=== PATIENT | female | born 1960 | race Caucasian/White ===

== ENCOUNTER 2024-01-07 03:10 | Inpatient (IN) | payer BC ==
[~2024-01-07] VITALS: Ht 167.6 cm; Wt 93.2 kg
[2024-01-07 04:47] LABS: BASOPHILS # (AUTO) 0.1 X10'3 (0-0.2); BASOPHILS % (AUTO) 1.2 % (0-1); EOSINOPHILS % (AUTO) 0.1 % (0-6); HEMATOCRIT 46.6 % (35.0-45.0); HEMOGLOBIN 15.5 g/dl (12.0-16.0); LYMPHOCYTES # (AUTO) 0.4 X10'3 (1.1-4.8); LYMPHOCYTES % (AUTO) 3.4 % (21-51); MEAN CORPUSCULAR HEMOGLOBIN 30.2 PG (27.0-31.0); MEAN CORPUSCULAR HGB CONC 33.2 g/dL (33.0-36.5); MEAN CORPUSCULAR VOLUME 91.1 FL (78-98); MEAN PLATELET VOLUME 10.1 FL (7.4-10.4); MONOCYTES # (AUTO) 0.5 X10'3 (0-0.9); MONOCYTES % (AUTO) 4.3 % (2-12); NEUTROPHILS # (AUTO) 11.3 X10'3 (1.8-7.7); PLATELET COUNT 257 X10'3 (140-440); RED BLOOD COUNT 5.12 X10'6 (4.20-5.60); RED CELL DISTRIBUTION WIDTH 13.6 % (11.5-14.5); WHITE BLOOD COUNT 12.5 X10'3 (4.5-11.0)
[2024-01-07 05:15] LABS: ALANINE AMINOTRANSFERASE 21 U/L (12-78); ALBUMIN 4.1 G/DL (3.4-5.0); ALBUMIN/GLOBULIN RATIO 1.2 (1.1-1.5); ALKALINE PHOSPHATASE 101 IU/L (46-116); ANION GAP 22 (8-16); ASPARTATE AMINO TRANSFERASE 11 U/L (10-37); BILIRUBIN,TOTAL 0.4 MG/DL (0.1-1.0); BLOOD UREA NITROGEN 29 MG/DL (7-18); BUN/CREATININE RATIO 37.2 (10.0-20.0); CALCIUM 9.3 MG/DL (8.5-10.1); CHLORIDE 106 MMOL/L (99-107); CREATININE 0.78 MG/DL (0.40-0.90); GLUCOSE 178 MG/DL (70-104); LIPASE 362 U/L (16-77); POTASSIUM 3.5 MMOL/L (3.5-5.1); SODIUM 142 MMOL/L (135-145); TOTAL PROTEIN 7.6 G/DL (6.4-8.2); eCRCL 70 ML/MIN; eGFR 75 ML/MIN
[2024-01-07 05:32] LABS: TOTAL CARBON DIOXIDE 14.1 MMOL/L (24-32)
[2024-01-07] MEDS: normal saline 1000ML IV soln IVB ONE (06:04)
[2024-01-07] MEDS: CefTRIAXone/D5W-Rocephin 1gm 50 ML IV ONE (06:04)
[2024-01-07] MEDS: ondansetron/PF 4mg/2ml inj IV ONE (06:04)
[2024-01-07] MEDS: morphine 4 MG/ML inj SYRINge IV ONE (06:05)
[2024-01-07 08:06] LABS: BILIRUBIN,URINE NEGATIVE (Neg); CLARITY,URINE CLEAR (Clear); COLOR,URINE YELLOW (Yellow); GLUCOSE, URINE 500 mg/dl (Neg); KETONES,URINE >=80 mg/dl (Neg); LEUKOCYTE ESTERASE ,URINE NEGATIVE (Neg); NITRITES, URINE NEGATIVE (Neg); OCCULT BLOOD,URINE TRACE-INTACT (Neg); PROTEIN,URINE NEGATIVE (Neg); UROBILINOGEN,URINE 0.2 E.U/dL (0.2-1.0)
[2024-01-07 08:08] LABS: UA COLLECTION TYPE CLN CATCH MIDSTREAM
[2024-01-07 08:17] LABS: BACTERIA,URINE NONE SEEN /HPF (Neg); RBC,URINE 0-2 /HPF (0-2); SQUAMOUS EPITHELIAL CELL,UR FEW /LPF (FEW); WBC,URINE 0-4 /HPF (0-4)
[2024-01-07] MEDS ORDERED: ringers solution, lactated 1000ml IV soln IV ONE (08:45)
[2024-01-07] MEDS ORDERED: ketorolac trometh 30MG/ML vial 30 MG/ML VIAL IV ONE (08:45)
[2024-01-07] MEDS ORDERED: METF-900 PO (09:19)
[2024-01-07] MEDS ORDERED: EMPA25TA PO (09:19)
[2024-01-07] MEDS ORDERED: AMIT25TA9 (09:19)
[2024-01-07] MEDS ORDERED: ROSU5TAB43 PO (09:19)
[2024-01-07] MEDS ORDERED: GABA600T13 (09:19)
[2024-01-07] MEDS ORDERED: CIPR2.5D21 EACHEYE (09:45)
[2024-01-07] MEDS ORDERED: METR-159 PO (09:45)
[2024-01-07] MEDS ORDERED: POTA-207 PO (09:45)
[2024-01-07] MEDS ORDERED: acetaminophen 325mg tablet PO PRN (10:25)
[2024-01-07] MEDS ORDERED: magnesium Cl slow-release 64mg tablet PO PRN (10:25)
[2024-01-07] MEDS ORDERED: magnesium sulf-water 4G/100mL 100 ML IV PRN (10:25)
[2024-01-07] MEDS ORDERED: potassium Cl 20 mEq SR tablet PO PRN (10:25)
[2024-01-07] MEDS ORDERED: magnesium sulf-water 2g/50mL 50 ML IV PRN (10:25)
[2024-01-07] MEDS: normal saline 1000ml 1,000 ML IV SCH (11:10)
[2024-01-07] MEDS: ondansetron/PF 4mg/2ml inj IV PRN (15:02)
[2024-01-07 15:29] VITALS: BP 141/68; PULSE 82; RESP 16; TEMP 98.2; O2SAT 99
[2024-01-07] MEDS: morphine 2 MG/ML inj. syringe IV PRN (16:34)
[2024-01-07 19:00] VITALS: BP 141/70; PULSE 85; RESP 16; TEMP 98; O2SAT 99
[2024-01-07 20:00] VITALS: RESP 14; O2SAT 94
[2024-01-07] MEDS: K and/or MAG REPLACEMENT MC SCH (20:00)
[2024-01-07] MEDS: pantoprazole 40 MG vial IV SCH (20:39)
[2024-01-07 22:00] VITALS: BP 139/60; PULSE 86; RESP 16; TEMP 97.1; O2SAT 97
[2024-01-08 04:33] LABS: BASOPHILS % (AUTO) 0.5 % (0-1); EOSINOPHILS % (AUTO) 0.4 % (0-6); HEMATOCRIT 41.4 % (35.0-45.0); HEMOGLOBIN 13.7 g/dl (12.0-16.0); LYMPHOCYTES # (AUTO) 1.2 X10'3 (1.1-4.8); LYMPHOCYTES % (AUTO) 13.3 % (21-51); MEAN CORPUSCULAR HEMOGLOBIN 30.3 PG (27.0-31.0); MEAN CORPUSCULAR VOLUME 91.7 FL (78-98); MEAN PLATELET VOLUME 9.3 FL (7.4-10.4); MONOCYTES # (AUTO) 0.7 X10'3 (0-0.9); MONOCYTES % (AUTO) 8.1 % (2-12); NEUTROPHILS % (AUTO) 77.7 % (42-75); PLATELET COUNT 215 X10'3 (140-440); RED BLOOD COUNT 4.51 X10'6 (4.20-5.60); RED CELL DISTRIBUTION WIDTH 14.2 % (11.5-14.5)
[2024-01-08 04:47] LABS: ALBUMIN 3.1 G/DL (3.4-5.0); ANION GAP 17 (8-16); BLOOD UREA NITROGEN 28 MG/DL (7-18); BUN/CREATININE RATIO 45.2 (10.0-20.0); CALCIUM 8.7 MG/DL (8.5-10.1); CHLORIDE 113 MMOL/L (99-107); CREATININE 0.62 MG/DL (0.40-0.90); GLUCOSE 125 MG/DL (70-104); LIPASE 44 U/L (16-77); MAGNESIUM 1.7 MG/DL (1.5-2.4); SODIUM 145 MMOL/L (135-145); TOTAL CARBON DIOXIDE 15.2 MMOL/L (24-32); eCRCL 88 ML/MIN; eGFR > 90 ML/MIN
[2024-01-08 04:48] LABS: POTASSIUM 3.9 MMOL/L (3.5-5.1)
[2024-01-08 06:00] VITALS: BP 135/66; PULSE 72; RESP 16; TEMP 97.5; O2SAT 99
[2024-01-08 10:00] VITALS: BP 139/64; PULSE 77; RESP 18; TEMP 97.2; O2SAT 99
[2024-01-08 12:18] LABS: CHOL/HDL RATIO 2.3 (0.00-4.99); CHOLESTEROL 138 MG/DL (0-200); HDL CHOLESTEROL 59 MG/DL (35-60); LDL CHOLESTEROL 62 MG/DL (50-100); TRIGLYCERIDES 104 MG/DL (20-135)
[2024-01-08] MEDS: sodium bicarbonate (8.4%) inj. 50 MEQ in dextrose 5%-water 1,000 ML IV SCH (15:38)
[2024-01-08 20:00] VITALS: RESP 18; O2SAT 97
[2024-01-08 22:00] VITALS: BP 145/71; PULSE 69; RESP 16; TEMP 98.2; O2SAT 97
[2024-01-09 05:53] LABS: ALBUMIN 2.7 G/DL (3.4-5.0); ANION GAP 12 (8-16); BLOOD UREA NITROGEN 19 MG/DL (7-18); BUN/CREATININE RATIO 34.5 (10.0-20.0); CALCIUM 8.4 MG/DL (8.5-10.1); CHLORIDE 108 MMOL/L (99-107); CREATININE 0.55 MG/DL (0.40-0.90); GLUCOSE 147 MG/DL (70-104); MAGNESIUM 1.7 MG/DL (1.5-2.4); SODIUM 139 MMOL/L (135-145); TOTAL CARBON DIOXIDE 19.5 MMOL/L (24-32); eCRCL 99 ML/MIN; eGFR > 90 ML/MIN
[2024-01-09 05:54] LABS: BASOPHILS # (AUTO) 0.1 X10'3 (0-0.2); BASOPHILS % (AUTO) 0.7 % (0-1); EOSINOPHILS # (AUTO) 0.2 X10'3 (0-0.9); EOSINOPHILS % (AUTO) 2.5 % (0-6); HEMATOCRIT 41.4 % (35.0-45.0); HEMOGLOBIN 13.4 g/dl (12.0-16.0); LYMPHOCYTES # (AUTO) 1.9 X10'3 (1.1-4.8); MEAN CORPUSCULAR HEMOGLOBIN 29.9 PG (27.0-31.0); MEAN CORPUSCULAR HGB CONC 32.3 g/dL (33.0-36.5); MEAN CORPUSCULAR VOLUME 92.7 FL (78-98); MEAN PLATELET VOLUME 9.4 FL (7.4-10.4); MONOCYTES # (AUTO) 0.7 X10'3 (0-0.9); MONOCYTES % (AUTO) 9.7 % (2-12); NEUTROPHILS # (AUTO) 4.6 X10'3 (1.8-7.7); NEUTROPHILS % (AUTO) 62.1 % (42-75); PLATELET COUNT 175 X10'3 (140-440); RED BLOOD COUNT 4.47 X10'6 (4.20-5.60); RED CELL DISTRIBUTION WIDTH 13.8 % (11.5-14.5); WHITE BLOOD COUNT 7.5 X10'3 (4.5-11.0)
[2024-01-09 06:45] VITALS: BP 139/70; PULSE 61; RESP 18; TEMP 97.6; O2SAT 98
[2024-01-09 06:54] LABS: HEMOGLOBIN A1C 6.5 % (4.5-6.2)
[2024-01-09] MEDS: potassium Cl 40MEQ/1/2NS 520ml 520 ML IV PRN (10:00)
[2024-01-09 11:04] VITALS: BP 162/73; PULSE 69; RESP 16; TEMP 97.6; O2SAT 99
[2024-01-09] MEDS: acetaminophen 325mg tablet PO PRN (11:15)
[2024-01-09] MEDS: gabapentin 400mg capsule PO SCH (15:14)
[2024-01-09] MEDS: sodium bicarbonate (8.4%) inj. 100 MEQ in dextrose 5%-water 1,000 ML IV SCH (17:45)
[2024-01-09] MEDS ORDERED: glucagon, human recombinant 1mg kit SUBCUT PRN (17:45)
[2024-01-09] MEDS ORDERED: DEXTROSE 15 GM of carb/4 tabs (each vial/BOTTLE has 4 tablets) PO PRN ×2 (17:45)
[2024-01-09] MEDS ORDERED: dextrose 50%-water 50ml dispensing syringe IV PRN ×2 (17:45)
[2024-01-09 18:00] VITALS: BP 115/65; PULSE 88; RESP 18; TEMP 97.6; O2SAT 93
[2024-01-09 20:00] VITALS: RESP 18; O2SAT 93
[2024-01-09] MEDS: amitriptyline 25mg tablet PO SCH (21:13)
[2024-01-09] MEDS: INSULIN LISPRO 100 UNIT/ML INSULN.PEN MULTI-DOSE SQ SCH (21:51)
[2024-01-09 22:00] VITALS: BP 138/76; PULSE 69; RESP 20; TEMP 97.7; O2SAT 100
[2024-01-10 06:03] LABS: BASOPHILS % (AUTO) 0.6 % (0-1); EOSINOPHILS # (AUTO) 0.2 X10'3 (0-0.9); EOSINOPHILS % (AUTO) 2.4 % (0-6); HEMATOCRIT 39.1 % (35.0-45.0); HEMOGLOBIN 13.4 g/dl (12.0-16.0); LYMPHOCYTES # (AUTO) 1.4 X10'3 (1.1-4.8); LYMPHOCYTES % (AUTO) 20.4 % (21-51); MEAN CORPUSCULAR HEMOGLOBIN 30.1 PG (27.0-31.0); MEAN CORPUSCULAR HGB CONC 34.2 g/dL (33.0-36.5); MEAN CORPUSCULAR VOLUME 88.2 FL (78-98); MEAN PLATELET VOLUME 9.8 FL (7.4-10.4); MONOCYTES # (AUTO) 0.5 X10'3 (0-0.9); MONOCYTES % (AUTO) 7.9 % (2-12); NEUTROPHILS # (AUTO) 4.7 X10'3 (1.8-7.7); NEUTROPHILS % (AUTO) 68.7 % (42-75); PLATELET COUNT 170 X10'3 (140-440); RED BLOOD COUNT 4.43 X10'6 (4.20-5.60); RED CELL DISTRIBUTION WIDTH 13.5 % (11.5-14.5); WHITE BLOOD COUNT 6.8 X10'3 (4.5-11.0)
[2024-01-10 06:17] LABS: ALBUMIN 2.6 G/DL (3.4-5.0); ANION GAP 9 (8-16); BLOOD UREA NITROGEN 13 MG/DL (7-18); BUN/CREATININE RATIO 30.2 (10.0-20.0); CALCIUM 8.4 MG/DL (8.5-10.1); CHLORIDE 108 MMOL/L (99-107); CREATININE 0.43 MG/DL (0.40-0.90); GLUCOSE 167 MG/DL (70-104); MAGNESIUM 1.6 MG/DL (1.5-2.4); POTASSIUM 3.2 MMOL/L (3.5-5.1); SODIUM 142 MMOL/L (135-145); TOTAL CARBON DIOXIDE 24.9 MMOL/L (24-32); eCRCL 127 ML/MIN; eGFR > 90 ML/MIN
[2024-01-10 06:35] VITALS: BP 134/66; PULSE 83; RESP 18; TEMP 97.8; O2SAT 96
[2024-01-10] MEDS: atorvastatin 20mg tablet PO SCH (07:58)
[2024-01-10] MEDS: potassium Cl 20 mEq SR tablet PO PRN (08:04)
[2024-01-10 10:16] VITALS: BP 130/69; PULSE 87; RESP 15; TEMP 98; O2SAT 93
[2024-01-10] MEDS ORDERED: POTA-207 PO (10:36)
[2024-01-10] MEDS ORDERED: PANT40TA54 PO (10:36)
[2024-01-10] MEDS ORDERED: ONDA-243 PO (10:36)
== END 2024-01-10 13:30 | disposition home or self-care (01) | DRG 439 ==
LOC: ER 03:10 → ED HOLD 10:27 → SUR 3N 14:55
PROVIDERS: ADMIT Internal Medicine; ATTEND Internal Medicine
DX: K85.90 Acute pancreatitis without necrosis or infection, unspecified (principal); E87.20 Acidosis, unspecified; E87.6 Hypokalemia; E78.5 Hyperlipidemia, unspecified; K76.0 Fatty (change of) liver, not elsewhere classified; E11.9 Type 2 diabetes mellitus without complications; Z88.0 Allergy status to penicillin; Z88.5 Allergy status to narcotic agent; Z79.899 Other long term (current) drug therapy; Z79.84 Long term (current) use of oral hypoglycemic drugs
CPT/HCPCS: 36415; 76700; 80048; 80053; 80061; 81001; 82948; 83036; 83605; 83690; 83735; 84145; 84484; 85025; 87081; 96365; 96375; 99285; G0378; J0696; J1815; J2270; J2405; J2470; J3480; J3490; J7030; J7070